=== PATIENT | female | born 1930 | race Caucasian/White ===

== ENCOUNTER 2017-12-18 15:11 | Emergency (ER) | payer OTHER ==
--- NOTE | 2017-12-18 15:47 | PDOC ---
Rapid Medical Evaluation Chief Complaint: Urinary Problem Time Seen by Provider: 12/18/17 15:47 Medical Evaluation: Allergies Allergy/AdvReac Type Severity Reaction Status Date / Time No Known Allergies Allergy Verified 12/18/17 15:43 12/18/17 15:47 The patient presents with a chief complaint of: urinary pain, ?retention I have performed a brief in-person evaluation of this patient. Pertinent physical exam findings: vss, stable I have ordered the following: ua, urine culture The patient will proceed to the ED for further evaluation. 12/18/17 15:50
[2017-12-18 15:53] VITALS: BP 152/72; PULSE 93; TEMP 98.2; BMI 26.2
--- NOTE | 2017-12-18 16:28 | PDOC ---
History of Present Illness - General History Source: Patient, Family (Daughter) Exam Limitations: No Limitations - History of Present Illness Initial Comments: 12/18/17 16:58 The patient is an 87 year old female with a significant PMH of multiple myeloma (diagnosed last January s/p chemo, in remission), breast CA, thyroid CA (s/p thyroid removal & subsequent hypothyroidism), permanent pacemaker, TIA, HTN, and recent Cipro use who presents to the emergency department with urinary retention and suprapubic pressure beginning approximately this morning. The patient reports she was not able to urinate this morning even after drinking significant fluids, which is associated with suprapubic pressure and mild right lower back pain. She reports just prior to presentation some urine began to leak out intermittently and she notes some overflow incontinence since then. She reports speaking with her oncologist about these symptoms who prompted her to visit the ED for possible catheter placement. She notes her last normal urination was yesterday. She denies any history of UTIs or other urinary complaints. The patient denies fevers or chills. The patient denies chest pain, shortness of breath, headache and dizziness. Denies nausea, vomit, diarrhea and constipation. Denies dysuria and hematuria. Allergies: NKA Past surgical history: Pacemaker placement. Mastectomy. Oophorectomy. Salpingectomy. Thyroidectomy. Social history: No reported cigarette, alcohol, or drug use. PCP: Dr. Haroldo Boyd Oncologist: Dr. Montoya ([place]) <Hardik Delarosa - Last Filed: 12/18/17 16:59> <Bruna Candelario - Last Filed: 12/18/17 19:07> - General Chief Complaint: Urinary Problem Stated Complaint: URINARY PAIN Time Seen by Provider: 12/18/17 15:47 Past History <Hardik Delarosa - Last Filed: 12/18/17 16:59> - Past Medical History Anemia: No Asthma: No Cancer: Yes (BREAST AND THYROID) Cardiac Disorders: Yes (permanent pacemaker) CVA: Yes (TIA) COPD: No Dementia: No Diabetes: No GI Disorders: No Disorders: No HTN: Yes Hypercholesterolemia: No Liver Disease: No Seizures: No Thyroid Disease: Yes - Surgical History Abdominal Surgery: No Appendectomy: No Cardiac Surgery: No Cholecystectomy: No Lung Surgery: No Neurologic Surgery: No Orthopedic Surgery: No - Suicide/Smoking/Psychosocial Hx Smoking Status: No Smoking History: Never smoked Have you smoked in the past 12 months: No Number of Cigarettes Smoked Daily: 0 Hx Alcohol Use: No Drug/Substance Use Hx: No <Bruna Candelario - Last Filed: 12/18/17 19:07> - Past Medical History Allergies/Adverse Reactions: Allergies Allergy/AdvReac Type Severity Reaction Status Date / Time No Known Allergies Allergy Verified 12/18/17 15:43 Home Medications: Ambulatory Orders Aspirin Coated [Ecotrin -] 325 mg PO DAILY #0 tablet. 02/14/12 Cholecalciferol (Vitamin D3) [Vitamin D] 2,000 unit PO DAILY 09/12/12 Amlodipine Besylate 5 mg PO DAILY 12/18/17 Calcium Carbonate [Calcium] 1,200 mg PO DAILY 12/18/17 Dexamethasone 10 mg PO DAILY 12/18/17 Hydrochlorothiazide 12.5 mg PO DAILY 12/18/17 Levothyroxine [Synthroid -] 75 mcg PO ASDIR 12/18/17 Venlafaxine HCl ER [Effexor Xr -] 37.5 mg PO DAILY 12/18/17 Review of Systems - Review of Systems Able to Perform ROS?: Yes Comments:: 12/18/17 16:58 GENERAL/CONSTITUTIONAL: No fever or chills. No weakness. HEAD, EYES, EARS, NOSE AND THROAT: No change in vision. No ear pain or discharge. No sore throat. CARDIOVASCULAR: No chest pain or shortness of breath. RESPIRATORY: No cough, wheezing, or hemoptysis. GASTROINTESTINAL: (+) Mid suprapubic pressure. No nausea, vomiting, diarrhea or constipation. GENITOURINARY: (+) Urinary retention and subsequent overflow incontinence. No dysuria or hematuria. MUSCULOSKELETAL: (+) Mild right lower back pain. No joint pain. No neck pain. SKIN: No rash NEUROLOGIC: No headache, vertigo, loss of consciousness, or change in strength/ sensation. ENDOCRINE: No increased thirst. No abnormal weight change. HEMATOLOGIC/LYMPHATIC: No anemia, easy bleeding, or history of blood clots. ALLERGIC/IMMUNOLOGIC: No hives or skin allergy. <Hardik Delarosa - Last Filed: 12/18/17 16:59> *Physical Exam - Vital Signs Last Vital Signs Temp Pulse Resp BP Pulse Ox 98.2 F 93 H 18 152/72 100 12/18/17 15:43 12/18/17 15:43 12/18/17 15:43 12/18/17 15:43 12/18/17 15:43 - Physical Exam Comments: 12/18/17 16:59 GENERAL: Awake, alert, and fully oriented, in no acute distress HEAD: No signs of trauma EYES: PERRLA, EOMI, sclera anicteric, conjunctiva clear ENT: Auricles normal inspection, hearing grossly normal, nares patent, oropharynx clear without exudates. Moist mucosa NECK: Normal ROM, supple, no lymphadenopathy, JVD, or masses LUNGS: Breath sounds equal, clear to auscultation bilaterally. No wheezes, and no crackles HEART: Regular rate and rhythm, normal S1 and S2, no murmurs, rubs or gallops ABDOMEN: Soft, nontender, normoactive bowel sounds. No guarding, no rebound. No masses. BACK: (+) Kyphosis. No CVA tenderness. EXTREMITIES: Normal range of motion, no edema. No clubbing or cyanosis. No cords, erythema, or tenderness NEUROLOGICAL: Cranial nerves II through XII grossly intact. Normal speech. SKIN: Warm, Dry, normal turgor, no rashes or lesions noted. <Hardik Delarosa - Last Filed: 12/18/17 16:59> - Vital Signs Last Vital Signs Temp Pulse Resp BP Pulse Ox 98.2 F 93 H 18 152/72 100 12/18/17 15:43 12/18/17 15:43 12/18/17 15:43 12/18/17 15:43 12/18/17 15:43 <Bruna Candelario - Last Filed: 12/18/17 19:07> ED Treatment Course - ADDITIONAL ORDERS Additional order review: Laboratory Results 12/18/17 16:22 Urine Color Straw Urine Appearance Clear Urine pH 5.0 Ur Specific Crowell 1.009 Urine Protein Negative Urine Glucose (UA) Negative Urine Ketones Negative Urine Blood 3+ H Urine Nitrite Negative Urine Bilirubin Negative Urine Urobilinogen Negative Ur Leukocyte Esterase Negative <Hardik Delarosa - Last Filed: 12/18/17 16:59> - LABORATORY CBC & Chemistry Diagram: 12/18/17 18:00 12/18/17 18:00 <Bruna Candelario - Last Filed: 12/18/17 19:07> Medical Decision Making - Medical Decision Making 12/18/17 18:04 Ms Alvarenga is an 87 yo F with a h/o Hypothyroidism, prior history of breast cancer as well as thyroid cancer, hypertension, multiple myeloma (currently being treated) disease. Patient presents emergency department for a complaint of urinary retention. Briefly, she reports that she had been unable to void since last night She has been drinking fluids Was able to void small amounts She was given cipro, has not taken any of it Came to the ER because her bladder was increasingly distended While walking from the parking lot, she voided a large amount No fevers or chills Mild flank pain On exam: A&Ox 3 Answers all questions RRR CTA Kyphosis No abd tenderness to palpation Will do labs Will do UA Will re assess 12/18/17 18:29 Laboratory Tests 12/18/17 12/18/17 16:22 18:00 WBC 7.7 Hgb 11.0 Hct 31.5 L Plt Count 339 D Urine Blood 3+ H Urine Nitrite Negative Ur Leukocyte Esterase Negative Urine WBC (Auto) 8 Urine RBC (Auto) 9 12/18/17 18:58 Will discharge to home Follow up with PMD Pt given copies of labs Please continue to stay hydrated Take cipro Will follow up urine culture Clinical Impression: Urinary retention, initial presentation Cystitis, initial presentation <Bruna Candelario - Last Filed: 12/18/17 19:07> *DC/Admit/Observation/Transfer - Attestations Scribe Attestion: 12/18/17 16:59 Documentation prepared by Hardik Delarosa, acting as manager medical writing for Bruna Candelario MD. <Hardik Delarosa - Last Filed: 12/18/17 16:59> - Discharge Dispostion Admit: No <Bruna Candelario - Last Filed: 12/18/17 19:07> Diagnosis at time of Disposition: Cystitis - Discharge Dispostion Disposition: HOME Condition at time of disposition: Stable - Referrals Referrals: Haroldo Boyd MD [Primary Care Provider] - - Patient Instructions Printed Discharge Instructions: DI for Urinary Tract Infection (UTI), DI for Acute Cystitis, DI for Hemorrhagic Cystitis Additional Instructions: Ms Alvarenga Thank you for coming into the emergency Department today You were given copies of your labs. PT sure to follow up with her primary care physician. Please take antibiotics that he was already prescribed. Please have your primary care physician follow-up with your urine cultures, they were sent from the emergency Department today. Please monitor for fevers or chills. Please return to emergency department for any other concerns or complaints - Post Discharge Activity
[2017-12-18 16:36] LABS: URINE APPEARANCE CLEAR; URINE BILIRUBIN NEGATIVE (<2.0 mg/dL); URINE BLOOD 3+ (NEGATIVE); URINE COLOR STRAW; URINE GLUCOSE (UA) NEGATIVE (NEGATIVE); URINE KETONE NEGATIVE (NEGATIVE); URINE LEUK ESTERASE NEGATIVE (NEGATIVE); URINE NITRITE NEGATIVE (NEGATIVE); URINE PROTEIN NEGATIVE (NEGATIVE); URINE UROBILINOGEN NEGATIVE mg/dL (0.2-1.0)
[2017-12-18 17:08] LABS: EPI CELLS FEW /HPF (FEW)
[2017-12-18 17:09] LABS: URINE BACTERIA RARE /hpf (NONE SEEN); URINE MUCUS RARE
[2017-12-18 18:09] LABS: BASO % 0.4 % (0-2.0); EOS % 0.4 % (0-4.5); HEMATOCRIT 31.5 % (32.4-45.2); LYMPH % 20.8 % (8-40); MCHC 34.9 g/dl (32.0-36.0); MEAN CELL VOLUME 106.2 fl (80-96); MEAN PLT VOLUME 6.7 fl (7.5-11.1); MONO % 6.1 % (3.8-10.2); NEUT % 72.3 % (42.8-82.8); PLATELET COUNT 339 K/MM3 (134-434); RBC 2.97 M/mm3 (3.60-5.2); RDW 18.7 % (11.6-15.6); WHITE BLOOD COUNT 7.7 K/mm3 (4.0-10.0)
[2017-12-18 18:11] LABS: ADD RBC MORPHOLOGY YES
[2017-12-18 18:45] LABS: ALBUMIN 3.9 g/dl (3.4-5.0); ANION GAP 5 (8-16); BILIRUBIN,TOTAL 0.2 mg/dL (0.2-1.0); BLOOD UREA NITROGEN 30 mg/dL (7-18); CALCIUM 8.9 mg/dL (8.5-10.1); CHLORIDE 102 mmol/L (98-107); CO2 29 mmol/L (21-32); CREATININE 1.3 mg/dL (0.55-1.02); GLUCOSE,RANDOM 97 mg/dL (74-106); POTASSIUM 3.7 mmol/L (3.5-5.1); SGOT/AST 22 U/L (15-37); SGPT/ALT 19 U/L (12-78); SODIUM 136 mmol/L (136-145); TOT PROT 6.8 g/dl (6.4-8.2)
[2017-12-18 18:46] LABS: ALK PHOS 62 U/L (45-117)
[2017-12-18 18:52] LABS: ANISOCYTOSIS 1+; MACROCYTOSIS 1+; PLATELET ESTIMATE ADEQUATE
== END 2017-12-18 19:09 | disposition home or self-care (01) ==
LOC: JER 15:11
DX: N30.01 Acute cystitis with hematuria (principal); I10 Essential (primary) hypertension; M40.209 Unspecified kyphosis, site unspecified; Z85.3 Personal history of malignant neoplasm of breast; Z85.850 Personal history of malignant neoplasm of thyroid; Z85.79 Personal history of other malignant neoplasms of lymphoid, hematopoietic and related tissues; Z86.73 Personal history of transient ischemic attack (TIA), and cerebral infarction without residual deficits; E89.0 Postprocedural hypothyroidism
CPT/HCPCS: 36415; 80053; 81003; 81015; 85025; 87086; 99282-25